=== PATIENT | female | born 1965 | race Caucasian/White ===

== ENCOUNTER 2025-06-18 02:20 | Emergency (ER) | payer BC ==
[2025-06-18] MEDS ORDERED: Famotidine/PF 20 mg/2ml Vial ONE (02:54)
[2025-06-18] MEDS ORDERED: Ketorolac Tromethamine 30 MG (1 mL) VIAL ONE (02:54)
[2025-06-18] MEDS ORDERED: Ondansetron PF 4 MG/2 ML Vial ONE (02:54)
[2025-06-18] MEDS ORDERED: diphenhydrAMINE 50 MG/ML VIAL ONE (03:00)
[2025-06-18 03:18] LABS: #Basophils 0.03 10x3/uL (0.0-0.2); #Eosinophils 0.19 10x3/uL (0.0-0.5); #Monocytes 0.83 10x3/uL (0.0-1.1); #Neutrophils 7.44 10x3/uL (1.5-8.4); %Basophils 0.3 % (0.0-2.0); %Eosinophils 1.9 % (0.0-6.0); %Lymphocytes 15.2 % (18.0-47.0); %Monocytes 8.3 % (0.0-10.0); %Neutrophils 74.1 % (40.0-75.0); Hematocrit 39.8 % (34.9-44.5); Hemoglobin 13.1 g/dL (12.0-15.5); Mean Corpuscular Hemoglobin 29.6 pg (27.0-33.0); Mean Corpuscular Volume 90.0 fL (81.6-98.3); Platelet Count 351 10x3/uL (150-450); Red Blood Cell (RBC) Count 4.42 10x6/uL (3.90-5.03); White Blood Cell (WBC) Count 10.03 10x3/uL (3.5-10.5)
[2025-06-18 03:35] LABS: ALT (SGPT) 27 U/L (Less than 34); AST (SGOT) 22 U/L (11-34); Albumin 4.0 g/dL (3.1-4.5); Alkaline Phosphatase 71 U/L (40-110); Anion Gap 16 mmol/L (10-20); BUN (Urea Nitrogen) 13 mg/dL (9.8-20.1); Bilirubin, Total 0.3 mg/dL (0.3-1.2); Calc. Creatinine Clearance 0 mL/min (70-130); Calcium 9.5 mg/dL (7.8-10.44); Carbon Dioxide 23 mmol/L (22-29); Chloride 105 mmol/L (98-107); Globulin 3.2 g/dL (2.4-3.5); Glucose 138 mg/dL (70-105); Lipase 65 U/L (8-78); Potassium 3.8 mmol/L (3.5-5.1); Sodium 140 mmol/L (136-145)
[2025-06-18 03:41] LABS: Troponin I 0.010 ng/mL (< 0.028)
== END 2025-06-18 05:50 | disposition home or self-care (01) ==
LOC: CSHERS 02:20
DX: K80.20 Calculus of gallbladder without cholecystitis without obstruction (principal); R91.1 Solitary pulmonary nodule; Z79.899 Other long term (current) drug therapy
CPT/HCPCS: 36415; 74177; 76705; 80053; 83690; 84484; 85025; 93005; 96374; 96375; J1200; J1308; J1885; J2270; J2405